=== PATIENT | male | born 1950 | race Caucasian/White ===

== ENCOUNTER 2023-02-19 00:58 | Day surgery (SDC) | payer MEDICARE, SELFPAY ==
[2023-02-06 13:58] VITALS: BMI 31.2
--- NOTE | 2023-02-16 16:28 | PM.HPGS ---
History of Present Illness History of Present Illness Consent: Risks, benefits, and alternatives have been discussed and questions answered. Patient agrees to proceed with procedure. Chief complaint: neoplasm screening Narrative: Graham Andrea is a 72 year old male Referred for colon cancer screening. His last colonoscopy was 4 years ago at which time 6 polyps were removed. Review of Systems Review of Systems: All systems reviewed & are unremarkable except as noted in HPI and below PMFSH Social History Social History Smoking status: Former smoker Alcohol intake: current Drinks per week: 21 Substance use: never Living arrangements: with family Spiritual care concerns: No Meds Home Medications and Allergies Home Medications Medication Instructions Recorded Confirmed Type amlodipine 5 mg tablet 5 mg PO DAILY 02/06/23 02/19/23 History aspirin 81 mg tablet,delayed 81 mg PO DAILY 02/06/23 02/19/23 History release atorvastatin 10 mg tablet 10 mg PO DAILY 02/06/23 02/19/23 History carvedilol 12.5 mg tablet 12.5 mg PO BID 02/06/23 02/19/23 History hydrochlorothiazide 12.5 mg tablet 12.5 mg PO DAILY 02/06/23 02/19/23 History losartan 50 mg tablet 50 mg PO DAILY 02/06/23 02/19/23 History ophrfeib-wb-vrqfc 300 mcg-K 60 1 tablet PO DAILY 02/06/23 02/19/23 History mcg-lycop 600 mcg-lutein 300 mcg tablet (Centrum Silver Men) zanubrutinib 80 mg capsule 160 mg PO BID 02/06/23 02/19/23 History ([place]kins[place]) Allergies Allergy/AdvReac Type Severity Reaction Status Date / Time No Known Allergies Allergy Verified 02/19/23 11:54 Exam Resp: Auscultation: clear to auscultation bilaterally Cardio: Rate: regular rate Rhythm: regular rhythm GI: GI Palp: Yes Soft to palpation and No Tenderness to palpation present (GI) Assessment and Plan Assessment and plan (1) Colon cancer screening: Code(s): Z12.11 - Encounter for screening for malignant neoplasm of colon Status: Acute Assessment and Plan: Colonoscopy with possible biopsy or polypectomy or cautery or injection of substances.
[2023-02-19 12:00] VITALS: BP 141/62; PULSE 84; RESP 18; TEMP 36.2; O2SAT 97
--- NOTE | 2023-02-19 12:13 | P.PNAN_ITS ---
Anes - Initial Pre Proc Eval Procedure: Operation Date: 02/19/23 13:00 Proposed Procedures p Screening Colonoscopy - Jimenez Merida MD Date/Time: 02/19/23 12:13 Surgeon: Jimenez Merida MD Pre Op Diagnosis: neoplasm screening Patient Data Age: 72 Gender: M Height: 1.75 m Weight: 93.2 kg Last Vital Signs Temp 97.2 F L 02/19/23 12:00 Pulse 84 02/19/23 12:00 Resp 18 02/19/23 12:00 BP 141/62 H 02/19/23 12:00 Pulse Ox 97 02/19/23 12:00 O2 Del Method Room Air 02/19/23 12:00 Allergies Allergy/AdvReac Type Severity Reaction Status Date / Time No Known Allergies Allergy Verified 02/19/23 11:54 Home Medications Medication Instructions Recorded Confirmed Type amlodipine 5 mg tablet 5 mg PO DAILY 02/06/23 02/19/23 History aspirin 81 mg tablet,delayed 81 mg PO DAILY 02/06/23 02/19/23 History release atorvastatin 10 mg tablet 10 mg PO DAILY 02/06/23 02/19/23 History carvedilol 12.5 mg tablet 12.5 mg PO BID 02/06/23 02/19/23 History hydrochlorothiazide 12.5 mg tablet 12.5 mg PO DAILY 02/06/23 02/19/23 History losartan 50 mg tablet 50 mg PO DAILY 02/06/23 02/19/23 History aphndrcd-dr-hnplj 300 mcg-K 60 1 tablet PO DAILY 02/06/23 02/19/23 History mcg-lycop 600 mcg-lutein 300 mcg tablet (Centrum Silver Men) zanubrutinib 80 mg capsule 160 mg PO BID 02/06/23 02/19/23 History ([place]kins[place]) Patient hx anesthesia problems: none Family hx anesthesia problems: none Results Review: All pre-operative results and documents have been reviewed as part of the pre- operative evaluation. [facility] Social History Social History Smoking status: Former smoker Alcohol intake: current Drinks per week: 21 Substance use: never Living arrangements: with family Spiritual care concerns: No Anes - Eval Final PreProcedure Day of Procedure 02/19/23 12:13 Patient weight: obese Heart: regular rate and rhythm Lungs: clear to auscultation Airway: Mallampati scale class III Neurological: alert and oriented Last oral intake: >/= 8 hours ASA classification: III Emergent: no Anesthetic plan: proceed Anesthesia type and monitoring: general GIVS and standard monitoring Results Review: All pre-operative results and documents have been reviewed as part of the pre- operative evaluation. Informed Consent: The patient's anesthetic plan and its attendant risks and benefits were discussed with the patient/family/POA. Questions were solicited and answers provided to the satisfaction of the patient/family/POA.
[2023-02-19] MEDS: LACTATED RINGERS 1,000 ML 150 ML IV CONT (12:21)
[2023-02-19] MEDS: SIMETHICONE ORAL SUSPENSION 20 MG/0.3 ML 30 ML BOTTLE 0.6 ML IRRIGATION (13:11)
[2023-02-19 13:20] VITALS: BP 117/63; PULSE 80; RESP 18; O2SAT 97
[2023-02-19 13:30] VITALS: BP 125/67; PULSE 78; RESP 15; O2SAT 99
[2023-02-19 13:40] VITALS: BP 133/89; PULSE 78; RESP 20; O2SAT 96
== END 2023-02-19 14:00 | disposition home or self-care (01) ==
PROVIDERS: PCP Family Medicine; Visit Provider Internal Medicine Gastroenterology
PROC: 0DJD8ZZ Inspection of Lower Intestinal Tract, Via Natural or Artificial Opening Endoscopic (ICD-10-PCS; CPT 45378; principal; 2023-02-19 13:00)
DX: Z12.11 Encounter for screening for malignant neoplasm of colon (principal); D12.3 Benign neoplasm of transverse colon; D12.5 Benign neoplasm of sigmoid colon; K57.30 Diverticulosis of large intestine without perforation or abscess without bleeding; K64.8 Other hemorrhoids; Z79.82 Long term (current) use of aspirin; Z87.891 Personal history of nicotine dependence; E66.9 Obesity, unspecified; Z68.30 Body mass index [BMI] 30.0-30.9, adult
CPT/HCPCS: 45385; 88305; J2704; J7120